=== PATIENT | male | born 1960 | race Caucasian/White ===

== ENCOUNTER 2022-01-19 11:07 | Emergency (ER) | payer BC, OTHER ==
--- OUTSIDE RECORDS SUMMARY | 2022-01-19 11:13 | XMS REPORT | Continuity of Care Document ---
:1960 Author Organization Formerly [facility] t Address [address] [place] [address] Care Team Providers Name Role Phone SOCRATES ANTONIO Attending Clinician Unavailable ELIJAH PAREKH Attending Clinician Unavailable DR KINGA TODD Attending Clinician Unavailable LAB90 Attending Clinician Unavailable LEXA GOMEZ Attending Clinician Unavailable RICA HILL Attending Clinician Unavailable , [facility] 1 Attending Clinician Unavailable Rica Hill PA-C Attending Clinician DR KINGA TODD Admitting Clinician Unavailable Payers Payer Name Policy Type Policy Number Effective Date Expiration Date S meryl BCBS 2 [id number] 2020 00:00:00 0450 [id number] 2018 00:00:00 Problems Condition Condition Condition Status Onset Resolution Last Treating Co mments Source Name Details Category Date Date Treatment Clinician Date Erectile Erectile Disease Active Kelse y dysfunctio dysfunctio 11-15 Se ybold n n 00:00: - 00 Externa l Hyperlipid Hyperlipid Disease Active K elsey emia emia 09-16 Seybold 00:00: - 00 Externa l Controlled Controlled Disease Active K elsey type 2 type 2 09-16 Seybold diabetes diabetes 00:00: - mellitus mellitus 00 Pit Manager a without without l complicati complicati on on Allergies, Adverse Reactions, Alerts Allergy Allergy Status Severity Reaction(s) Onset Inactive Treating Comm ents Source Name Type Date Date Clinician No Known DA Active [facility] Social History Social Habit Start Date Stop Date Quantity Comments Source Sex Ass[birth year] At [birth year] Carri Se ybold - 00:00:00 00:00:00 External Smoking Status Start Date Stop Date Source Never smoked tobacco Carri Luna old - External Medications Ordered Filled Start Stop Current Ordering Indication Dosage Frequency Signature Comments Components Source Medication Medication Date Date Medication? Clinician (SIG) Name Name Neomycin-Po Yes 1 DROP(S) Ana Rosa modi lymyxin-Dex - RIGHT EYE Sey bold ameth 00:00: 2 TIMES A - 3.5-76231-5 00 DAY 10 Pit Manager a .1 DAYS l ophthalmic Suspension Neomycin-Po Yes APPLY 1/2 Ana Rosa modi lymyxin-Dex - INCH TO Seybo ld ameth 00:00: INCISIONS - 3.5-66218-5 00 RIGHT EYE Ext benji .1 AT BEDTIME l ophthalmic 14 DAYS Ointment Lovastatin Yes 40mg Take 1 Kelse y 40 MG oral 8-22 tablet (40 Sey bold Tablet 00:00: mg total) - 00 by mouth Externa nightly l Lisinopril Yes [id number] 10mg Take 1 Carri 10 MG oral 8-22 tablet (10 Sey bold Tablet 00:00: mg total) - 00 by mouth Externa daily l Dapaglifloz Yes [id number] 2{tbl} Take 2 Carri in-metFORMI 8-22 tablets by Se ybold N HCl ER 00:00: mouth - (Xigduo XR) 00 daily Externa 5-1000 MG l oral TABLET SR 24 HR Tadalafil Yes [id number] 20mg QD Take 1 K elsey 20 MG oral 8-22 tablet (20 Sey bold Tablet 00:00: mg total) - 00 by mouth Externa daily as l needed diazePAM 10 Yes BRING TO Ke lsey MG oral 8-19 SURGERY Seybold Tablet 00:00: DATE AND - 00 TAKE ONLY Externa l DIRECTED BY SURGERY STAFF. Tadalafil Yes 20mg Q24H Take 1 Carri (Cialis) 20 7-09 tablet (20 Se ybold MG oral 00:00: mg total) Tablet 00 by mouth daily as needed for erectile dysfunctio n Lovastatin Yes [id number] 40mg Take 1 K elsey 40 MG oral 6-25 tablet (40 Sey bold Tablet 00:00: mg total) 00 by mouth nightly Lisinopril Yes [id number] 10mg Take 1 Carri 10 MG oral 6-23 tablet (10 Sey bold Tablet 00:00: mg total) 00 by mouth daily Dapaglifloz Yes [id number] 2{tbl} Take 2 Carri in-metFORMI 6-23 tablets by Se ybold N HCl ER 00:00: mouth (Xigduo XR) 00 daily 5-1000 MG oral TABLET SR 24 HR Immunizations Ordered Immunization Filled Immunization Date Status Commen ts Source Name Name Shingles IM 2021-04-19 Completed Carri Osborneybol d (Shingrix) 00:00:00 - External Shingles IM 2020-11-23 Completed Carri Osborneybol d (Shingrix) 00:00:00 Shingles IM 2020-11-23 Completed Carri Osborneybol d (Shingrix) 00:00:00 - External Vital Signs Vital Name Observation Time Observation Value Comments Source Weight 2022-01-05 07:25:00 120.92 KG Height 2021-12-31 10:57:00 177.8 CM Weight 2021-12-31 10:57:00 115.66 KG Systolic blood 2021-12-27 19:30:00 142 mm[Hg] Carri Scott - pressure External Diastolic blood 2021-12-27 19:30:00 63 mm[Hg] Figueroa Scott - pressure External Heart rate 2021-12-27 19:30:00 92 /min Carri cotto - External Body temperature 2021-12-27 19:30:00 36.44 Pauline Charla hart Seybold - External Respiratory rate 2021-12-27 19:30:00 14 /min Charla hart Seybold - External Body height 2021-12-27 19:30:00 177.8 cm Carri cotto - External Body weight 2021-12-27 19:30:00 123.378 kg Carri cotto - External BMI 2021-12-27 19:30:00 39.03 kg/m2 Carri cotto - External Oxygen saturation in 2021-12-27 19:30:00 99 /min Carri Scott - Arterial blood by External Pulse oximetry Systolic blood 2020-12-10 14:53:00 135 mm[Hg] Carri Seybciro pressure Diastolic blood 2020-12-10 14:53:00 88 mm[Hg] Kelse y Seybold pressure Heart rate 2020-12-10 14:53:00 109 /min Carri cotto Body temperature 2020-12-10 14:53:00 36.5 Pauline Charla hart Seybciro Respiratory rate 2020-12-10 14:53:00 18 /min Charla hart Seybold Body height 2020-12-10 14:53:00 177.8 cm Carri cotto Body weight 2020-12-10 14:53:00 132.45 kg Carri cotto BMI 2020-12-10 14:53:00 41.90 kg/m2 Carri hartyanet Procedures Procedure Date / Time Performed Performing Clinician [facility] e TRANSFER FACE SKIN 2022-01-05 00:00:00 Bhavik Oliver edical EXTERNAL APPR Center DILAT RT LACRIMAL DUCT 2022-01-05 00:00:00 Jeffrey talbot Medical TERRY/ART OPNG Center Encounters Start End Encounter Admission Attending Care Care Encounter Source Date/Time Date/Time Type Type Clinicians Facility Department ID 2022-01-24 2022-01-24 Outpatient CARRI ANTONIO [id number] Carri 09:45:00 09:45:00 SOCRATES beth 2022-01-19 2022-01-19 Outpatient CARRI PAREKH [id number] Carri 11:45:00 11:45:00 ELIJAH Sephoenixol kirit 2022-01-19 2022-01-19 Outpatient CARRI PAREKH [id number] Carri 00:00:00 00:00:00 ELIJAH Seybol d 2022-01-05 2022-01-05 Outpatient Humberto TODD [facility] KELLI [id number] Bhavik 07:05:00 11:15:00 KINGA Forrester [facility] 2021-12-27 2021-12-27 Outpatient CARRI ANTONIO [id number] Carri 14:30:00 14:30:00 SOCRATES Seybol d 2021-11-15 2021-11-15 Outpatient LAB90 CARRI ALLEN [id number] Carri 11:30:00 11:30:00 Seybol d 2021-11-15 2021-11-15 Office Paolo ANTONIO [id number] Carri 10:45:00 10:45:00 Visit SOCRATES Dominguez [id number] Se rashi [id number] 2021-10-28 2021-10-28 Outpatient CARRI ANTONIO [id number] Carri 00:00:00 00:00:00 SOCRATES Seybol d 2021-10-20 2021-10-20 Outpatient CARRI ANTONIO [id number] Carri 00:00:00 00:00:00 SOCRATES Seybol d 2021-06-14 2021-06-14 Outpatient CARRI ANTONIO [id number] Carri 00:00:00 00:00:00 SOCRATES Seybol d 2021-06-14 2021-06-14 Outpatient CARRI ANTONIO [id number] Carri 00:00:00 00:00:00 SOCRATES Seybol d 2021-06-12 2021-06-12 Outpatient CARRI ANTONIO [id number] Carri 00:00:00 00:00:00 SOCRATES Seybol d 2021-04-19 2021-04-19 Outpatient QUENTIN ALLEN [id number] Carri 00:00:00 00:00:00 LEXA HART Se ybold 2021-01-01 2021-01-01 Outpatient CARRI HILL [id number] Carri 00:00:00 00:00:00 RICA Seybol d 2020-12-31 2020-12-31 Outpatient CARRI HILL [id number] Carri 00:00:00 00:00:00 RICA Seybol d 2020-12-23 2020-12-23 Outpatient RUBY [id number] Carri 10:00:00 10:00:00 Seybol d 2020-12-10 2020-12-10 Office SACHA Hill [id number] Carri 09:50:30 10:20:30 Visit Rica Martinez [id number] Tyler [id number] 2020-11-23 2020-11-23 Outpatient QUENTIN ALLEN [id number] Carri 00:00:00 00:00:00 LEXA HART Se ybold Results Test Description Test Time Test Comments Results Result Comments Source GLUCOMETER GLUCOSE- LAB USE ONLY 2022-01-05 07:44:00 Test Item Value Reference Range Interpretation Comme nts GLUCOMETER (test code = GMG) 117 mg/dL 70-100 H Meter ID: [id number]: [id number] MICHAEL MILLIGAN
[2022-01-19 12:17] LABS: RBC Red Blood Cell Count 5.43 M/uL (4.33-5.43)
[2022-01-19 12:18] LABS: Absolute Lymphocytes (CBC) 1.7 K/uL (0.7-4.9); Lymphocytes % 21.1 % (15.3-44.8); MCV 88.3 fL (80-100)
[2022-01-19] MEDS ORDERED: METOCLOPRAMIDE 10 MG/2mL INJ ONE (12:20)
[2022-01-19] MEDS ORDERED: DIPHENHYDRAMINE 50 MG/ML VIAL ONE (12:20)
[2022-01-19] MEDS ORDERED: dexAMETHasone 10 MG/ML VIAL ONE (12:20)
[2022-01-19] MEDS ORDERED: KETOROLAC 30 MG/ML INJ ONE (12:20)
--- NOTE | 2022-01-19 12:20 | RAD REPORT ---
EXAM DESCRIPTION: CT - Ct Stroke Brain Wo Cont - 01/19/2022 12:09 pm CLINICAL HISTORY: Left facial droop COMPARISON: No comparisons TECHNIQUE: All CT scans are performed using dose optimization technique as appropriate and may inclu de automated exposure control or mA/KV adjustment according to patient size. FINDINGS: No intracranial hemorrhage, hydrocephalus or extra-axial fluid collection.No areas of brai n edema or evidence of midline shift. The paranasal sinuses and mastoids are clear. The calvarium is intact. IMPRESSION: No acute intracranial abnormality. Findings conveyed to the ED at 1215 01/19/22
[2022-01-19] MEDS ORDERED: NA CHLORIDE 0.9% 1,000 ML ONE (12:21)
[2022-01-19] MEDS ORDERED: NACHLORIDE 0.45% 1,000 ML IV ONE (12:21)
[2022-01-19 12:25] LABS: Protime INR 1.01
[2022-01-19 12:36] LABS: Troponin High Sensitivity 40.4 pg/mL (<58.9)
--- NOTE | 2022-01-19 13:02 | RAD REPORT ---
EXAM DESCRIPTION: RAD - Chest Single View - 01/19/2022 12:44 pm CLINICAL HISTORY: facial droop, Stroke protocol chest film COMPARISON: Portable 01/25/2017 TECHNIQUE: AP portable chest image was obtained 01/19/2022 12:44 pm . FINDINGS: Lungs are clear. Heart and vasculature are normal. No measurable pleural effusion and no p neumothorax. No acute bony abnormality seen. No acute aortic findings suspected. IMPRESSION: No acute cardiopulmonary process. No significant change from comparison study.
--- NOTE | 2022-01-19 13:09 | ER ---
Nurse's Notes [facility] Name: Bear August Age: 61 yrs Sex: Male : 1960 Arrival Date: 01/19/2022 Time: 11:14 Bed 16 Private MD: Diagnosis: Ng's palsy Presentation: 01/19 11:15 Chief complaint: Patient states: Mild left lower facial numbness since 01/13/2022, jl7 worsening to inability to blink left eye started yesterday to left side of mouth drooping today. Coronavirus screen: At this time, the client does not indicate any symptoms associated with coronavirus-19. Ebola Screen: No symptoms or risks identified at this time. Initial Sepsis Screen: Does the patient meet any 2 criteria? No. Patient's initial sepsis screen is negative. Does the patient have a suspected source of infection? No. Patient's initial sepsis screen is negative. Risk Assessment: Do you want to hurt yourself or someone else? Patient reports no desire to harm self or others. Onset of symptoms was January 13, 2022. 11:15 Method Of Arrival: Ambulatory [facility] 11:15 Acuity: JESUS 3 jl7 Triage Assessment: 13:35 General: Behavior is calm, cooperative, appropriate for age. 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 - Social history:: Smoking status: Patient denies any tobacco usage or history of. Screenin:45 Abuse screen: Denies threats or abuse. Nutritional screening: No deficits noted. ap3 Tuberculosis screening: No symptoms or risk factors identified. Fall Risk None identified. Assessment: 11:45 General: Appears in no apparent distress. Pain: Denies pain. Neuro: Level of ap3 Consciousness is awake, alert, obeys commands, Oriented to person, place, time, situation, Moves all extremities. Gait is steady, Speech is normal, Facial droop on left. Respiratory: Airway is patent Respiratory effort is even, unlabored, Respiratory pattern is regular, symmetrical. Vital Signs: 11:15 BP 133 / 90; Pulse 75; Resp 17; Temp 97.2; Pulse Ox 97% ; Weight 115.67 kg; Height 5 jl7 ft. 10 in. (177.80 cm); Pain 0/10; 11:15 Body Mass Index 36.59 (115.67 kg, 177.80 cm) jl7 ED Course: 11:14 Patient arrived in ED. mr 11:26 Luis Barboza DO is Attending Physician. ms3 11:40 Triage completed. jl7 11:45 Emily Fuentes, RN is Primary Nurse. ap3 11:45 Inserted saline lock: 20 gauge in left antecubital area, using aseptic technique. ap3 11:45 Arm band placed on left wrist. ap3 12:11 CT Stroke Brain w/o Contrast In Process Unspecified. EDMS 12:45 Stroke CXR 1 View In Process Unspecified. EDMS 13:35 No provider procedures requiring assistance completed. ap3 13:35 IV discontinued, intact, bleeding controlled, No redness/swelling at site. Pressure ap3 dressing applied. 13:35 Patient has correct armband on for positive identification. Bed in low position. Call ap3 light in reach. Side rails up X 1. Adult w/ patient. financial service rep on. Pulse ox on. NIBP on. Administered Medications: No medications were administered Medication: 13:35 VIS not applicable for this client. ap3 Outcome: 13:09 Discharge ordered by . ms3 13:35 Discharged to home ambulatory. ap3 13:35 Condition: good 13:35 Discharge instructions given to patient, Instructed on discharge instructions, follow up and referral plans. medication usage, Demonstrated understanding of instructions, follow-up care, medications, Prescriptions given X 2. 13:36 Patient left the ED. ap3 Signatures: Dispatcher [employer] [facility] Quang Elizabeth GainesPako RN RN jl7 Emily Fuentes RN RN ap3 Luis Barboza DO DO ms3
--- NOTE | 2022-01-19 13:09 | EDPHYS ---
Physician Documentation [facility] Name: Bear August Age: 61 yrs Sex: Male : 1960 Arrival Date: 01/19/2022 Time: 11:14 Bed 16 Private MD: ED Physician Luis Barboza HPI: 01/19 13:09 This 61 yrs old Male presents to ER via Ambulatory with complaints of Facial Droop. ms3 13:09 The patient presents to the emergency department with Left facial weakness. Onset: The ms3 symptoms/episode began/occurred 4 day(s) ago. Context:. Associated signs and symptoms: Pertinent positives: Pertinent negatives: headache, nausea, paresthesias, loss of vision. Severity of symptoms: At their worst the symptoms were moderate in the emergency department the symptoms are unchanged Pain is currently a 0 / 10. Patient's baseline: Neuro: alert and fully oriented, Motor: no deficits, Ambulation: walks without assistance, Speech: normal. Current symptoms: Left facial palsy. 61-year-old male presents for left-sided facial droop. Patient states symptoms began last when he developed tongue pain that then progressed to change in taste on Monday. Patient states his symptoms became worse on Monday with left-sided facial droop and inability to close the left eye. Patient states this morning while brushing his teeth he noticed an increase in the left-sided facial deficits.. 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 - Social history:: Smoking status: Patient denies any tobacco usage or history of. ROS: 13:09 Constitutional: Negative for fever, and chills. ENT: Negative for injury, pain, and ms3 discharge, Cardiovascular: Negative for chest pain, and palpitations. Respiratory: Negative for shortness of breath, cough, wheezing, and pleuritic chest pain, Abdomen/GI: Negative for abdominal pain, nausea, vomiting, diarrhea, and constipation, MS/Extremity: Negative for injury and deformity, Skin: Negative for injury, rash, and discoloration. 13:09 Neuro: Positive for Left sided facial weakness. 13:09 All other systems are negative. Exam: 13:09 Constitutional: This is a well developed, well nourished patient who is awake, alert, ms3 and in no acute distress. Head/Face: Normocephalic, atraumatic. Neck: Trachea midline, no cervical lymphadenopathy. Supple, full range of motion without nuchal rigidity, or vertebral point tenderness. No Meningismus. Cardiovascular: Regular rate and rhythm with a normal S1 and S2. No gallops, murmurs, or rubs. Normal PMI, no JVD. No pulse deficits. Respiratory: Lungs have equal breath sounds bilaterally, clear to auscultation and percussion. No rales, rhonchi or wheezes noted. No increased work of breathing, no retractions or nasal flaring. Abdomen/GI: Soft, non-tender, with normal bowel sounds. No distension or tympany. No guarding or rebound. No evidence of tenderness throughout. Skin: Warm, dry with normal turgor. Normal color with no rashes, no lesions, and no evidence of cellulitis. MS/ Extremity: Pulses equal, no cyanosis. Neurovascular intact. Full, normal range of motion. 13:09 Head/face: Noted is Left sided facial droop, left forehead involvement. 13:09 Eyes: Left eyelid not closing. 13:09 Neuro: Orientation: is normal, Mentation: is normal, Memory: is normal, Cranial nerves: facial droop noted on left, with forehead involved. Cerebellar function: is grossly normal, Motor: moves all fours, strength is 5/5 in all extremities, Sensation: is normal, Gait: is steady, at a normal pace. Vital Signs: 11:15 BP 133 / 90; Pulse 75; Resp 17; Temp 97.2; Pulse Ox 97% ; Weight 115.67 kg; Height 5 jl7 ft. 10 in. (177.80 cm); Pain 0/10; 11:15 Body Mass Index 36.59 (115.67 kg, 177.80 cm) jl7 MDM: 11:54 Patient medically screened. ms3 13:09 Data reviewed: vital signs, nurses notes, lab test result(s), radiologic studies, and ms3 as a result, I will discharge patient. Counseling: I had a detailed discussion with the patient and/or guardian regarding: the historical points, exam findings, and any diagnostic results supporting the discharge/admit diagnosis, lab results, radiology results, the need for outpatient follow up. ED course: Patient with left-sided facial droop without other weakness or any numbness. Discussed CT scan and labs with patient. Patient notes he was bit by a tick approximately 2 months ago. Lyme titers were sent and are outpatient labs. Patient placed on doxycycline pending Lyme titers. Patient placed on 60 mg prednisone as well. Patient to follow-up with his primary care physician in 2 to 3 days. Patient understands and agrees with plan. All questions were answered. Return precautions discussed include worsening symptoms, or any other concerns.. 01/19 11:55 Order name: Basic Metabolic Panel; Complete Time: 12:53 ms3 01/19 11:55 Order name: CBC with Diff; Complete Time: 12:53 ms3 01/19 11:55 Order name: High Sensitivity Troponin; Complete Time: 12:53 ms3 01/19 11:55 Order name: Protime (+inr); Complete Time: 12:53 ms3 01/19 11:55 Order name: Ptt, Activated; Complete Time: 12:53 ms3 01/19 13:10 Order name: Lyme Ab Reflex IgM,IgG EDMS 01/19 11:55 Order name: CT Stroke Brain w/o Contrast; Complete Time: 12:53 ms3 01/19 11:55 Order name: Stroke CXR 1 View; Complete Time: 20:13 ms3 01/19 11:55 Order name: Cardiac monitoring; Complete Time: 12:02 ms3 01/19 11:55 Order name: IV Saline Lock; Complete Time: 12:02 ms3 01/19 11:55 Order name: Labs collected and sent; Complete Time: 12:06 ms3 01/19 11:55 Order name: NPO; Complete Time: 12:02 ms3 01/19 11:55 Order name: O2 Per Protocol; Complete Time: 12:02 ms3 01/19 11:55 Order name: O2 Sat Monitoring; Complete Time: 12:02 ms3 01/19 11:55 Order name: Stroke Swallow Screen; Complete Time: 12:02 ms3 Administered Medications: No medications were administered Disposition Summary: 01/19/22 13:09 Discharge Ordered Location: Home ms3 Condition: Stable ms3 Diagnosis - Ng's palsy ms3 Followup: ms3 - With: Private Physician - When: 2 - 3 days - Reason: Recheck today's complaints Discharge Instructions: - Discharge Summary Sheet ms3 - Ng Palsy, Adult ms3 Forms: - Medication Reconciliation Form ms3 - Thank You Letter ms3 - Antibiotic Education ms3 - Prescription Opioid Use ms3 Prescriptions: - Prednisone 20 mg Oral Tablet - take 3 tablets by ORAL route once daily for 7 days; 21 tablet; Refills: 0, ms3 Product Selection Permitted - Doxycycline Hyclate 100 mg Oral Tablet - take 1 tablet by ORAL route every 12 hours; 20 tablet; Refills: 0, Product ms3 Selection Permitted Signatures: Dispatcher [employer] Pako Pizarro RN RN jl7 Emily Fuentes RN RN ap3 Luis Barboza DO DO ms3 Corrections: (The following items were deleted from the chart) 12:35 11:55 Accucheck ordered. ms3 ap3
[2022-01-19 13:56] VITALS: BP 133/90; TEMP 97.2; O2SAT 97
== END 2022-01-19 13:36 | disposition home or self-care (01) ==
LOC: ER 11:07
DX: G51.0 Bell's palsy (principal); E11.9 Type 2 diabetes mellitus without complications; Z85.840 Personal history of malignant neoplasm of eye
CPT/HCPCS: 85025; 80048; 36415; 85610; 85730; 84484; 86618; 70450; 71045; 99284; J2765; J1200; J1100; J7030